=== PATIENT | male | born 1985 | race Caucasian/White ===

== ENCOUNTER 2023-03-11 08:13 | Outpatient (CLI) | payer OTHER, SELFPAY | END 2023-03-11 08:14 | disposition home or self-care (01) | PROVIDERS: PCP Family Medicine; Visit Provider Internal Medicine | DX: Z00.00 Encounter for general adult medical examination without abnormal findings (principal); Z13.6 Encounter for screening for cardiovascular disorders; Z13.9 Encounter for screening, unspecified | CPT/HCPCS: 80053; 80061 ==

== ENCOUNTER 2025-06-02 11:29 | Outpatient (CLI) | payer OTHER, SELFPAY | END 2025-06-02 11:30 | disposition home or self-care (01) | PROVIDERS: PCP Family Medicine; Visit Provider Family Medicine | DX: I73.00 Raynaud's syndrome without gangrene (principal); E78.5 Hyperlipidemia, unspecified; R20.9 Unspecified disturbances of skin sensation | CPT/HCPCS: 80053; 80061 ==